=== PATIENT | female | born 1935 | race Caucasian/White ===

== ENCOUNTER 2024-05-06 13:39 | Emergency (ER) | payer MEDICARE, OTHER ==
[~2024-05-06] VITALS: Ht 172.7 cm; Wt 67.6 kg
[~2024-05-06 13:39] MED LIST: CALCIUM500 MG PO; CHLORTHALIDONE25 MG PO; CLOPIDOGREL75 MG PO; CO Q-10300 MG PO; LO-DOSE ASPIRIN81 MG PO; MAGNESIUM100 MG PO; NATURAL LUTEIN20 MG PO; POTASSIUM CHLO10 ME1 PO; SIMVASTATIN40 MG PO; VITAMIN B COMP1 EAC1 PO; VITAMIN C1000 MG PO; VITAMIN D3125 MC2 PO
[2024-05-06 14:32] LABS: BILIRUBIN, URINE NEGATIVE (negative); BLOOD/HGB, URINE MODERATE (Negative); KETONE, URINE NEGATIVE (Negative); LEUK ESTERASE, URINE LARGE (negative); NITRITE, URINE POSITIVE (negative); PH, URINE 5.5 (5-7)
[2024-05-06 14:39] LABS: WHITE BLOOD CELLS, URINE >50 /HPF (0-5)
[2024-05-06 14:40] LABS: BACTERIA, URINE 2+ /hpf (negative); CASTS, URINE NONE SEEN \\lpf; COLLECTION TYPE, URINE CLEAN CATCH; CRYSTALS, URINE NONE SEEN (0-1+); EPITHELIAL CELLS, URINE SQUAMOUS 3+ /lpf (0-1+); REFLEX CULTURE, URINE No (No)
[2024-05-06 14:42] LABS: BASOPHILS 0.4 % (0-2); EOSINOPHILS 2.5 % (0-6); HEMATOCRIT 38.2 % (35.0-50.0); LYMPHOCYTES 22.3 % (24-44); MCH 30.8 (27-36); MCHC 33.9 g/dl (30-36); MONOCYTES 9.7 % (0-12); NEUTROPHILS 65.1 % (39-80); PLATELET COUNT 279 K/uL (140-440); RDW 13.6 (10.5-15.0)
[2024-05-06 14:54] LABS: ALBUMIN 3.2 g/dL (3.4-5.0); ALBUMIN/GLOBULIN RATIO 0.76 (1.1-2.4); ANION GAP 14.9 (7-21); BILIRUBIN, TOTAL 0.6 ng/dL (0.2-1.0); BUN/CREATININE RATIO 16.47 (6.0-28.6); CALCIUM 9.5 mg/dL (8.5-10.1); CREATININE, SERUM 0.85 mg/dL (0.55-1.02); POTASSIUM 3.9 mmol/L (3.5-5.1); PROTEIN, TOTAL 7.4 g/dL (6.4-8.2)
[2024-05-06 14:57] LABS: LACTIC ACID, BLOOD 0.9 mmol/L (0.4-2.0)
[2024-05-06] MEDS ORDERED: CEPHALEXIN MONOHYDRATE 500 MG CAP PO ONE (15:15)
[2024-05-06] MEDS ORDERED: CEPHALEXIN500 MG PO (15:17)
[2024-05-06 15:30] VITALS: BP 139/58
== END 2024-05-06 15:30 | disposition home or self-care (01) ==
LOC: ED 13:39
PROVIDERS: Emergency Medicine
DX: N39.0 Urinary tract infection, site not specified (principal); J45.909 Unspecified asthma, uncomplicated; I10 Essential (primary) hypertension; R73.03 Prediabetes; M81.0 Age-related osteoporosis without current pathological fracture; Z86.73 Personal history of transient ischemic attack (TIA), and cerebral infarction without residual deficits; Z88.8 Allergy status to other drugs, medicaments and biological substances; Z79.82 Long term (current) use of aspirin; Z79.899 Other long term (current) drug therapy
CPT/HCPCS: 36415; 74018; 80053; 81001; 83605; 83690; 85025; 99284; A9270